=== PATIENT | male | born 1990 | race Caucasian/White ===

== ENCOUNTER → 2021-09-09 19:02 | Outpatient (CLI) | payer OTHER, SELFPAY | PROVIDERS: Visit Provider Nurse Practitioner | DX: Z20.822 Contact with and (suspected) exposure to COVID-19 (principal) | CPT/HCPCS: C9803; U0003; U0005 ==

== ENCOUNTER → 2021-10-14 15:07 | Outpatient (CLI) | payer OTHER, SELFPAY | PROVIDERS: Visit Provider Nurse Practitioner | DX: Z20.822 Contact with and (suspected) exposure to COVID-19 (principal) | CPT/HCPCS: C9803; U0003; U0005 ==

== ENCOUNTER 2022-03-15 10:50 | Emergency (ER) | payer SELFPAY ==
[2022-03-15 10:55] VITALS: BP 133/90; PULSE 60; RESP 18; TEMP 36.6; O2SAT 97; BMI 26.6
[2022-03-15 11:10] VITALS: BP 133/90; PULSE 60; RESP 18; TEMP 36.6; O2SAT 97
--- NOTE | 2022-03-15 11:17 | HMH.EDUTC ---
[facility] Disposition Clinical Impression: Upper respiratory infection, viral, Exposure to COVID-19 virus Disposition: Home, Self-Care Condition on Discharge: Good Instructions: DI for Viral Upper Respiratory Infection -- Adult, DI for COVID-19 (Suspected or Confirmed ) Additional Instructions: covid swab was sent to lab, call tomorrow for results. self isolate until test results are known to be negative No sign of a bacterial infection. Likely viral. Viruses can take 7-14 days to run their course. Nasal saline and bulb syringe or nose Marli to remove nasal drainage to help with nasal congestion. Hard to eat, drink, sleep with nasal congestion so important to keep this cleaned out. Monitor temp. Tylenol or Motrin as needed for pain or fever Encourage fluids, water, Gatorade, Powerade, Pedialyte if /toddler/child Warm salt water gargles Warm fluids Sore throat lozenges Sleep elevated Humidifier/vaporizer Follow-up immediately for new or worsening symptoms or no noticeable improvement over the next 48-72 hours. Referrals: Provider,Referral, [Primary Care Provider] - Time of Disposition: 11:20 Medical Decision Making - Harley Inquiry Pt receiving controlled substance: No Vital Signs: 03/15/22 10:55 03/15/22 11:10 Temperature 97.9 F 97.9 F Temperature Source Oral Pulse Rate 60 Pulse Rate [Right Brachial] 60 Respiratory Rate 18 18 Blood Pressure 133/90 Blood Pressure [Right Arm] 133/90 Blood Pressure Mean [Right Arm] 104 Blood Pressure Source [Right Arm] Automatic Cuff Blood Pressure Position [Right Arm] Sitting 02 Sat by Pulse Oximetry 97 Oxygen Delivery Method Room Air Orders (Tests/Meds): ORDERS Category Date Time Status Covid-19 Nasal PCR ([facility]) Routine Lab 03/15/22 10:57 Received [facility] HPI - General Chief complaint: Urgent [facility] Stated complaint: covid exposure, body cahes, sore throat, chills Time Seen by Provider: 03/15/22 11:18 Mode of Arrival: Ambulatory Source of Information: Patient Limitations: No Limitations Description of Symptoms (Recalled from Triage Doc. by RN): PATIENT C/O BODY ACHES, COUGH, AND FEVER. RECENTLY EXPOSED TO COVID HEENT Symptoms (Recalled from RN notes): No Resp Symptoms (Recalled from RN notes): Yes Skin Symptoms (Recalled from RN notes): No MS Symptoms (Recalled from RN notes): No Functional Status (Recalled from RN notes): WNL - History of Present Illness Provider Complaint: 31 yr old male presents for covid exposer and having sore throat,nasal congestion,cough,body aches,fever and chills - Related Data Home Medications Medication Instructions Recorded Confirmed No Known Home Medications 01/09/18 03/15/22 Allergies Allergy/AdvReac Type Severity Reaction Status Date / Time No Known Allergies Allergy Verified 03/15/22 11:08 - Worker's Comp Is this a Worker's Comp case?: No [facility] History - Hepatitis A Screen Attestation statement:: This patient has been screened for Hepatitis A risk factors. I have reviewed the patient's past medical history: Yes Medical History: Denies:: Cancer, Diabetes Mellitus Type 1, Diabetes Mellitus Type 2, MRSA Amputation: No Fractures: No - Social History Smoking Status: Current every day smoker Tobacco Type: cigarettes # Packs/Day (cigarettes): 1 Alcohol Intake: never ROS Obtained: Yes Systems reviewed as appropriate & no additional complaints - Constitutional Constitutional: Reports system reviewed and no additional complaints, except as docu, Reports body ache, Reports chills, Reports fever(s) - Eyes Eyes: Reports system reviewed and no additional complaints, except as docu, Denies eye discharge - ENT Ears, Nose, Mouth, and Throat: Reports system reviewed and no additional complaints, except as docu, Reports nasal congestion, Reports nasal discharge, Reports sore throat - Cardiovascular Cardiovascular: Reports system reviewed and no additional complaints, except
== END 2022-03-15 11:26 | disposition home or self-care (01) ==
PROVIDERS: Emergency Provider Nurse Practitioner Family
DX: J06.9 Acute upper respiratory infection, unspecified (principal); U07.1 COVID-19
CPT/HCPCS: 99212; C9803; G0463; U0003; U0005

== ENCOUNTER 2022-03-28 15:20 | Emergency (ER) | payer SELFPAY ==
[2022-03-28 15:28] VITALS: BP 118/80; PULSE 60; RESP 18; TEMP 36.9; O2SAT 95; BMI 25.8
--- NOTE | 2022-03-28 15:46 | PC.NURSE ---
at the bedside to suture
--- NOTE | 2022-03-28 15:53 | HMH.EDGENADL ---
ED Disposition Clinical Impression: Finger laceration Qualifiers: Encounter type: initial encounter Finger: index finger Damage to nail status: without damage Foreign body presence: without foreign body Laterality: left Qualified Code(s): S61.211A - Laceration without foreign body of left index finger without damage to nail, initial encounter Disposition: Home, Self-Care Condition on Discharge: Good Instructions: DI for Laceration Repair Additional Instructions: You have been evaluated for laceration to the left index finger. Please keep dressing on. Use splint for comfort. Keep wound dry for 24 hours. Okay to shower after that. Use triple antibiotic ointment. Follow-up with a primary care doctor for wound check in 7 to 10 days. Have any remaining sutures removed that time. Sutures are absorbable. Tylenol Motrin for pain. Return to the emergency department at once for any new or worsening symptoms, wound drainage, redness, fevers, other concerns. Referrals: Provider,Referral, [Primary Care Provider] - Time of Disposition: 15:59 - Critical Care Critical Care Time: No Attestation: On 03/28/22, the high probability of a clinically significant, sudden or life threatening deterioration of the following system(s) required my full and direct attention, intervention and personal management. The time I documented below is in addition to time spent performing reported procedures but includes the following listed in this critical care notation. Medical Decision Making - Medical Records Medical records reviewed: Yes: I reviewed the patient's medical records. - Harley Inquiry Pt receiving controlled substance: No Vital Signs: 03/28/22 15:28 Temperature 98.5 F Temperature Source Oral Pulse Rate [Left Radial] 60 Respiratory Rate 18 Blood Pressure [Right Arm] 118/80 Blood Pressure Mean [Right Arm] 92 02 Sat by Pulse Oximetry 95 Oxygen Delivery Method Room Air Orders (Tests/Meds): ED MEDICATIONS Discontinued Medications Generic Name Dose Route Start Last Admin Trade Name Freq PRN Reason Stop Dose Admin Lidocaine HCl 5 ml 03/28/22 15:31 Lidocaine 1% 10ml Mdv SQ 03/28/22 15:32 ONCE ONE Tetanus/Reduced Diphtheria/Acell Pertussis 0.5 ml 03/28/22 15:32 Tet/Diphth/Pert-Adult 0.5ml Syringe IM 03/28/22 15:33 .ONCE ONE Medical Decision Narrative: In summary this is a 31-year-old [id number] male presenting to the emergency department with a laceration to the radial aspect of the left index finger. Patient clinically stable on arrival. Vital signs within normal limits. Bleeding controlled on arrival. Laceration is near the joint, but does not cross the joint line. Doubt involvement of the capsule. He has sensation intact on both sides of the distal digit. Good capillary refill. No evidence of arterial bleed. Digital block performed with 1% lidocaine. Tourniquet applied. Laceration repaired with sutures. Procedure well-tolerated. Patient counseled on wound care. Recommended PCP follow-up. Given return precautions. Stable for discharge. General Adult HPI - General Chief complaint: Wound/Laceration Stated complaint: AO03/28/23 L index finger Time Seen by Provider: 03/28/22 15:23 Mode of Arrival: Ambulatory Limitations: No Limitations Description of Symptoms (Recalled from ER Triage Doc. by RN): pt to ed c/o left index finger laceration. pt states he was cutting wood and sliced his finger. pt states he is not utd on a tetanus shot. - History of Present Illness HPI narrative: 31-year-old male presenting to the emergency department with a laceration to the left index finger. Incident happened just prior to arrival. He was using a machete when it slipped and cut the side of his left index finger. There is a rather large laceration. Bleeding controlled with pressure. He is able to move the finger at of the joints. Denies any numbness, weakness, tingling at the
[2022-03-28 16:29] VITALS: BP 128/74; PULSE 85; RESP 16; TEMP 36.7; O2SAT 97
== END 2022-03-28 16:31 | disposition home or self-care (01) ==
PROVIDERS: Emergency Provider Emergency Medicine
DX: S61.211A Laceration without foreign body of left index finger without damage to nail, initial encounter (principal); W26.0XXA Contact with knife, initial encounter; Y93.H2 Activity, gardening and landscaping
CPT/HCPCS: 12002; 90471; 99282

== ENCOUNTER 2022-07-05 09:43 | Emergency (ER) | payer BC, SELFPAY ==
[2022-07-05 11:30] VITALS: BP 119/67; PULSE 88; RESP 20; TEMP 37.7; O2SAT 97; BMI 25.1
[2022-07-05 11:49] LABS: UTC Strep Screen (Rapid) Positive (Negative)
[2022-07-05 11:50] LABS: UTC Influenza A Antigen Negative (Negative); UTC Influenza B Antigen Negative (Negative)
--- NOTE | 2022-07-05 11:55 | EXP.UTC ---
Discharge Plan Disposition Patient Disposition: Home, Self-Care Condition: Good Prescriptions Prescriptions: New azithromycin [azithromycin] 250 mg tablet 250 mg PO DIRECTED Qty: 6 0RF Rx Instructions: Take two (2) tablets on day #1, then one (1) tablet day #2 thru #5 Referrals Follow up/Referrals: Provider,Referral, MD [Primary Care Provider] - See instructions Activity Restrictions/Add. Instructions Additional Instructions/Restrictions: Start antibiotics today be sure to take it as ordered with the full length of time although you should start feeling better in 24-48 hours. Change toothbrush and toothpaste 24-48 hours after starting antibiotics Tylenol or Motrin as needed for fever or pain Encourage fluids, water, Gatorade, Powerade, try cold fluids, popsicles, ice cream will make it feel better You are contagious for 24 hours. Avoid kissing anyone, no eating or drinking after anyone. You are contagious. Follow-up the ER for new or worsening symptoms or no noticeable improvement over the next 24-48 hours. Follow-up with PCP this week. Clinical Impressions Clinical Impression: Strep sore throat Instructions Patient Instructions: DI for Strep Throat Discharge ED Provider: Melvin ([facility])[place] [facility] [place] HPI General Stated complaint: ear pain, body aches, sore throat, lung congestion Mode of Arrival: Ambulatory Source of Information: Patient Limitations: No Limitations Time Seen by Provider: 07/05/22 11:55 Description of Symptoms (Recalled from Triage Doc. by RN): PATIENT C/O SORE THROAT, EAR PAIN, AND BODY ACHES X 3-4 DAYS HEENT Symptoms (Recalled from RN notes): Yes Resp Symptoms (Recalled from RN notes): No Skin Symptoms (Recalled from RN notes): No MS Symptoms (Recalled from RN notes): No Functional Status (Recalled from RN notes): WNL History of Present Illness Provider Complaint: 32 yr old male presents for sore throat, chills,and body aches for 2 days Related Data Previous Rx's Medication Instructions Recorded azithromycin 250 mg tablet 250 mg PO DIRECTED #6 tabs 07/05/22 Allergies Allergy/AdvReac Type Severity Reaction Status Date / Time No Known Allergies Allergy Verified 03/15/22 11:08 Worker's Comp Is this a Worker's Comp case?: No PFSH PFSH Social History , [employer]) Smoking Status: Current every day smoker tobacco type: cigarettes packs per day: 1 alcohol intake: never current occupational status: other Travel in the last 8 weeks: None ROS Obtained: Yes All systems reviewed & no additional complaints except as documented Constitutional Constitutional: Reports system reviewed and no additional complaints, except as documented Eyes Eyes: Reports system reviewed and no additional complaints, except as documented ENT Ears, Nose, Mouth, and Throat: Reports system reviewed and no additional complaints, except as documented, Reports as per HPI and Reports sore throat Cardiovascular Cardiovascular: Reports system reviewed and no additional complaints, except as documented and Reports as per HPI Gastrointestinal Gastrointestingal: Reports system reviewed and no additional complaints, except as documented and as per HPI Musculoskeletal Musculoskeletal: Reports system reviewed and no additional complaints, except as documented and Reports as per HPI Integumentary/Breasts Skin/Breast: Reports system reviewed and no additional complaints, except as documented and Reports as per HPI Endocrine Endocrine: Reports system reviewed and no additional complaints, except as documented and Reports as per HPI Hematologic/Lymphatic Henatologic/Lymphatic: Reports system reviewed and no additional complaints, except as documented and Reports as per HPI Allergic/Immunologic Allergic/Immunologic: Reports system reviewed and no additional complaints, except as documented and Reports as per HPI Physical Exam General General appearance: alert
[2022-07-05 12:07] VITALS: BP 119/67; PULSE 88; RESP 20; TEMP 37.7; O2SAT 97
== END 2022-07-05 12:10 | disposition home or self-care (01) ==
PROVIDERS: Emergency Provider Nurse Practitioner Family
DX: J02.0 Streptococcal pharyngitis (principal)
CPT/HCPCS: 87804; 87880; 99212; G0463

== ENCOUNTER 2022-09-24 10:14 | Emergency (ER) | payer BC, SELFPAY ==
[2022-09-24 10:30] VITALS: BP 117/50; PULSE 65; RESP 20; TEMP 36.6; O2SAT 97; BMI 24.3
--- NOTE | 2022-09-24 10:38 | EXP.UTC ---
Discharge Plan Disposition Patient Disposition: Home, Self-Care Condition: Good Prescriptions Prescriptions: New permethrin 5 % cream 1 applic topical Q14D Qty: 60 0RF Rx Instructions: leave on x8-14h ;apply second treatment 14 days after first treatment if live mites remain triamcinolone acetonide 0.1 % cream 1 applic topical BID PRN (Reason: itching) Qty: 15 0RF Referrals Follow up/Referrals: Provider,Referral, MD [Primary Care Provider] - See instructions Activity Restrictions/Add. Instructions Additional Instructions/Restrictions: Don't put the topical steroids (triamcinolone) on your face or your groin. Use the medication as directed. Don't put the topical steroids (triamcinolone) on your face or your groin. Follow up with your regular doctor. GO TO THE ER FOR ANY WORSENING SYMPTOMS OR CONCERNS Clinical Impressions Clinical Impression: Scabies Stand Alone Forms Stand Alone Forms: Work/School Release Instructions Patient Instructions: Scabies, DI for Scabies, Triamcinolone Topical Discharge ED Provider: Heath Crawford [facility] General Stated complaint: body rash Time Seen by Provider: 09/24/22 10:37 History of Present Illness Provider Complaint: He states that he has had itching and rash for the past 1 week. He has had scabies before and that is what he says he has now. Related Data Previous Rx's Medication Instructions Recorded permethrin 5 % topical cream 1 applic topical Q14D 2 doses #60 09/24/22 grams triamcinolone acetonide 0.1 % 1 applic topical BID PRN itching 09/24/22 topical cream #15 grams Allergies Allergy/AdvReac Type Severity Reaction Status Date / Time No Known Allergies Allergy Verified 09/24/22 10:49 [facility] Disclaimer: The information contained in this section may have been updated after the patient was seen, as this information can be updated by other users. Social History Smoking Status: Current every day smoker tobacco type: cigarettes packs per day: 1 alcohol intake: never current occupational status: other Travel in the last 8 weeks: None ROS Obtained: Yes All systems reviewed & no additional complaints except as documented Constitutional Constitutional: Denies chills and Denies fever(s) Eyes Eyes: Reports as per HPI, Denies blind spots, Denies blurry vision, Denies change in vision, Denies decreased night vision, Denies diplopia, Denies eye discharge, Denies floaters, Reports irritation, Denies itchy eyes, Denies loss of peripheral vision, Denies loss of vision, Reports sensitivity to light, Denies eye pain and Reports photophobia ENT Ears, Nose, Mouth, and Throat: Denies dizziness, Denies otalgia and Denies sore throat Cardiovascular Cardiovascular: Denies chest pain Respiratory Respiratory: Denies shortness of breath, Denies chest congestion, Denies cough, Denies stridor and Denies wheezing Gastrointestinal Gastrointestingal: Denies nausea or vomiting Musculoskeletal Musculoskeletal: Reports system reviewed and no additional complaints, except as documented and Denies arthralgias Integumentary/Breasts Skin/Breast: Denies rash Neurologic Neurologic: Denies dizziness, Denies loss of vision and Denies paresthesias Allergic/Immunologic Allergic/Immunologic: Denies itchy eyes and Denies wheezing Physical Exam General General appearance: alert and in no apparent distress Head Head exam: atraumatic, normocephalic and normal inspection Eye Eye exam: Present PERRL, EOMI, conjunctival redness and conjunctival injection; Absent discharge, nystagmus, miosis, mydriasis, periorbital swelling or periorbital tenderness ENT ENT exam: Present normal exam, normal oropharynx, mucous membranes moist, TM's normal bilaterally and normal external ear exam Neck Neck exam: Present normal inspection, full ROM and trachea midline; Absent meningismus or lymphadenopathy Chest Chest inspect
[2022-09-24 11:05] VITALS: BP 117/50; PULSE 65; RESP 20; TEMP 36.6; O2SAT 97
== END 2022-09-24 11:05 | disposition home or self-care (01) ==
PROVIDERS: Emergency Provider Nurse Practitioner Family
DX: B86 Scabies (principal)
CPT/HCPCS: 99212; 99213; G0463

== ENCOUNTER 2022-12-07 10:32 | Emergency (ER) | payer BC, SELFPAY ==
[2022-12-07 11:40] VITALS: BP 106/72; PULSE 57; RESP 20; TEMP 36.7; O2SAT 97; BMI 27.1
--- NOTE | 2022-12-07 11:40 | EXP.UTC ---
Discharge Plan Disposition Patient Disposition: Home, Self-Care Condition: Good Prescriptions Prescriptions: New benzonatate [benzonatate] 100 mg capsule 100 mg PO TIDP PRN (Reason: Cough) Qty: 30 0RF methylprednisolone 4 mg Tablets,Dose Pack 4 mg PO DIRECTED Qty: 21 0RF amoxicillin-pot clavulanate 875-125 mg Tablet 1 tab PO Q12H Qty: 20 0RF Referrals Follow up/Referrals: Provider,Referral, MD [Primary Care Provider] - See instructions Activity Restrictions/Add. Instructions Additional Instructions/Restrictions: Drink plenty of fluids. Take tylenol or ibuprofen for pain or fever. Take the medications as directed. Follow up with your regular doctor. GO TO THE ER FOR ANY WORSENING SYMPTOMS Clinical Impressions Clinical Impression: Pharyngitis, Bronchitis Stand Alone Forms Stand Alone Forms: Work/School Release Instructions Patient Instructions: DI for Pharyngitis/Tonsillopharyngitis -- Adult Discharge ED Provider: Heath Crawford [facility] General Stated complaint: Sore throat,earaches, frequent urination Time Seen by Provider: 12/07/22 11:40 History of Present Illness Provider Complaint: He states that he has had a sore throat and malaise for the past 2 days Related Data Previous Rx's Medication Instructions Recorded amoxicillin 875 mg-potassium 1 tab PO Q12H #20 tabs 12/07/22 clavulanate 125 mg tablet benzonatate 100 mg capsule 100 mg PO TIDP PRN Cough #30 caps 12/07/22 methylprednisolone 4 mg tablets in 4 mg PO DIRECTED #21 tabs 12/07/22 a dose pack Allergies Allergy/AdvReac Type Severity Reaction Status Date / Time No Known Allergies Allergy Verified 12/07/22 11:50 [facility] Disclaimer: The information contained in this section may have been updated after the patient was seen, as this information can be updated by other users. Social History Smoking Status: Current every day smoker tobacco type: cigarettes packs per day: 1 alcohol intake: never current occupational status: other Travel in the last 8 weeks: None ROS Obtained: Yes All systems reviewed & no additional complaints except as documented Constitutional Constitutional: Reports chills and Reports fever(s) Eyes Eyes: Denies eye discharge ENT Ears, Nose, Mouth, and Throat: Reports as per HPI Cardiovascular Cardiovascular: Denies chest pain Respiratory Respiratory: Denies chest congestion and Reports cough Gastrointestinal Gastrointestingal: Reports nausea; Denies abdominal pain, constipation, cramping, diarrhea or vomiting Musculoskeletal Musculoskeletal: Denies arthralgias Integumentary/Breasts Skin/Breast: Denies rash Neurologic Neurologic: Denies paresthesias Physical Exam General General appearance: alert and in no apparent distress Head Head exam: atraumatic, normocephalic and normal inspection Eye Eye exam: Present normal appearance, PERRL and EOMI ENT ENT exam: Present mucous membranes moist and normal external ear exam Expanded ENT Exam TM/Canal exam: Bilateral TM: erythema and bulging Nose exam: Absent sinus tenderness Mouth exam: Present normal external inspection; Absent drooling Teeth exam: Present normal inspection Throat exam: Present tonsillar erythema, tonsillomegaly and tonsillar exudate Neck Neck exam: Present normal inspection, full ROM and trachea midline; Absent tenderness, meningismus or lymphadenopathy Chest Chest inspection: Present normal inspection and symmetric chest wall rise; Absent tenderness Respiratory Respiratory exam: Present normal lung sounds bilaterally; Absent respiratory distress, wheezes or stridor Cardiovascular Cardiovascular exam: Present regular rate and normal rhythm; Absent systolic murmur or diastolic murmur Abdominal Exam Abdominal exam: Present soft and normal bowel sounds; Absent distention, tenderness, guarding, rebound or rigidity Extremities Exam Extremities exam: Pr
[2022-12-07 11:50] LABS: UTC Strep Screen (Rapid) Negative (Negative)
[2022-12-07 12:26] VITALS: BP 106/72; PULSE 57; RESP 20; TEMP 36.7; O2SAT 97
== END 2022-12-07 12:25 | disposition home or self-care (01) ==
PROVIDERS: Emergency Provider Nurse Practitioner Family
DX: J20.9 Acute bronchitis, unspecified (principal); J02.9 Acute pharyngitis, unspecified; F17.210 Nicotine dependence, cigarettes, uncomplicated
CPT/HCPCS: 87880; 99212; 99214; G0463

== ENCOUNTER 2023-01-20 14:04 | Emergency (ER) | payer BC, SELFPAY ==
[2023-01-20 14:48] VITALS: BP 131/77; PULSE 61; RESP 18; TEMP 36.8; O2SAT 98; BMI 29.8
--- NOTE | 2023-01-20 15:22 | EXP.UTC ---
Discharge Plan Disposition Patient Disposition: Home, Self-Care Condition: Good Prescriptions Prescriptions: No Action benzonatate [benzonatate] 100 mg capsule 100 mg PO TIDP PRN (Reason: Cough) Qty: 30 0RF methylprednisolone 4 mg Tablets,Dose Pack 4 mg PO DIRECTED Qty: 21 0RF amoxicillin-pot clavulanate 875-125 mg Tablet 1 tab PO Q12H Qty: 20 0RF Referrals Follow up/Referrals: Provider,Referral, MD [Primary Care Provider] - See instructions Clinical Impressions Clinical Impression: Nausea vomiting and diarrhea Discharge ED Provider: Shelbi Aguirre [facility] HPI General Stated complaint: dizzy, nausea, diarrhea Mode of Arrival: Ambulatory Source of Information: Patient Limitations: No Limitations Time Seen by Provider: 01/20/23 16:10 Description of Symptoms (Recalled from Triage Doc. by RN): pt c/o nausea, diarrhea, dizziness and blurred vision since last night. HEENT Symptoms (Recalled from RN notes): Yes Resp Symptoms (Recalled from RN notes): No Skin Symptoms (Recalled from RN notes): No MS Symptoms (Recalled from RN notes): No Functional Status (Recalled from RN notes): wnl History of Present Illness Provider Complaint: Patient states that last night he was at work and started with N/V/D and he felt a little dizzy and vision was off States he thinks it was blurry for a moment or two his phone didnt look right but that subsided shortly but still continued to have N/V/D States that today he was still having vomiting and diarrhea and denies dizziness or blurry vision and wasnt able to work and needs a work note Related Data Previous Rx's Medication Instructions Recorded amoxicillin 875 mg-potassium 1 tab PO Q12H #20 tabs 12/07/22 clavulanate 125 mg tablet benzonatate 100 mg capsule 100 mg PO TIDP PRN Cough #30 caps 12/07/22 methylprednisolone 4 mg tablets in 4 mg PO DIRECTED #21 tabs 12/07/22 a dose pack Allergies Allergy/AdvReac Type Severity Reaction Status Date / Time No Known Allergies Allergy Verified 01/20/23 15:00 Worker's Comp Is this a Worker's Comp case?: No [facility] Disclaimer: The information contained in this section may have been updated after the patient was seen, as this information can be updated by other users. Social History Smoking Status: Current every day smoker tobacco type: cigarettes packs per day: 1 alcohol intake: never current occupational status: other Travel in the last 8 weeks: None ROS Obtained: Yes All systems reviewed & no additional complaints except as documented and Yes Systems reviewed as appropriate & no additional complaints except as documented Constitutional Constitutional: Reports system reviewed and no additional complaints, except as documented and Reports as per HPI Eyes Eyes: Reports system reviewed and no additional complaints, except as documented, Reports as per HPI and Reports other (blurry vision for a moment last nigh after vomiting but only last a moment ) ENT Ears, Nose, Mouth, and Throat: Reports system reviewed and no additional complaints, except as documented, Reports as per HPI and Reports dizziness Cardiovascular Cardiovascular: Reports system reviewed and no additional complaints, except as documented and Reports as per HPI Respiratory Respiratory: Reports system reviewed and no additional complaints, except as documented and Reports as per HPI Gastrointestinal Gastrointestingal: Reports system reviewed and no additional complaints, except as documented, as per HPI, diarrhea, nausea and vomiting Genitourinary Male Genitourinary: Reports system reviewed and no additional complaints, except as documented and Reports as per HPI Neurologic Neurologic: Reports dizziness Physical Exam General General appearance: alert and in no apparent distress Eye Eye exam: Present normal appearance, PERRL and EOMI ENT ENT exam: Present normal exam, normal oropharynx, mucous m
[2023-01-20 16:02] VITALS: BP 131/77; PULSE 61; RESP 18; TEMP 36.8
== END 2023-01-20 16:11 | disposition home or self-care (01) ==
PROVIDERS: Emergency Provider Nurse Practitioner
DX: R11.2 Nausea with vomiting, unspecified (principal); R19.7 Diarrhea, unspecified; F17.210 Nicotine dependence, cigarettes, uncomplicated
CPT/HCPCS: 99212; 99213; G0463

== ENCOUNTER 2024-04-29 14:35 | Emergency (ER) | payer SELFPAY ==
[2024-04-29 14:40] VITALS: BP 111/71; PULSE 66; RESP 20; TEMP 36.6; O2SAT 97; BMI 26.6
--- NOTE | 2024-04-29 14:49 | EXP.UTC ---
Discharge Plan Disposition Patient Disposition: Home, Self-Care Condition: Good Prescriptions Prescriptions: New sulfamethoxazole-trimethoprim [Bactrim DS] 800-160 mg Tablet 1 tab PO Q12H Qty: 20 0RF Referrals Follow up/Referrals: Provider,Referral, [Primary Care Provider] - See instructions Clinical Impressions Clinical Impression: Abscess of external ear Instructions Patient Instructions: DI for Skin Abscess Print Language Print Language: Serbian Discharge ED Provider: Zakiya Johnson [facility] [place] HPI General Stated complaint: spot on back of ear with pain Mode of Arrival: Ambulatory Source of Information: Patient Limitations: No Limitations Time Seen by Provider: 04/29/24 14:49 Description of Symptoms (Recalled from Triage Doc. by RN): PATIENT C/O PAINFUL KNOT BEHIND LEFT EAR X 1 WEEK HEENT Symptoms (Recalled from RN notes): Yes Resp Symptoms (Recalled from RN notes): No Skin Symptoms (Recalled from RN notes): No MS Symptoms (Recalled from RN notes): No Functional Status (Recalled from RN notes): WNL History of Present Illness Provider Complaint: Knot behind left ear for a few days. It is sore. Tried to drain it this am but only blood came out. Onset (ago): day(s) (3) Location: head Relieving factors: none Exacerbating factors: none Associated symptoms: denies other symptoms Treatments prior to arrival: none Related Data Previous Rx's ?Medication ?Instructions ?Recorded sulfamethoxazole 800 1 tab PO Q12H #20 tabs 04/29/24 mg-trimethoprim 160 mg tablet (Bactrim DS) Allergies Allergy/AdvReac Type Severity Reaction Status Date / Time No Known Allergies Allergy Verified 01/20/23 15:00 Worker's Comp Is this a Worker's Comp case?: No [facility] Disclaimer: The information contained in this section may have been updated after the patient was seen, as this information can be updated by other users. Medical History (Updated 04/29/24 @ 15:00 by СЕРГЕЙ Lopez) No significant past medical history Social History Smoking Status: Current every day smoker tobacco type: cigarettes packs per day: 1 alcohol intake: never current occupational status: other Travel in the last 8 weeks: None ROS Obtained: Yes All systems reviewed & no additional complaints except as documented Integumentary/Breasts Skin/Breast: Reports as per HPI and Reports furuncle Physical Exam General General appearance: alert and in no apparent distress Head Head exam: atraumatic, normocephalic and normal inspection Eye Eye exam: Present normal appearance, PERRL and EOMI ENT ENT exam: Present normal exam, normal oropharynx, mucous membranes moist, TM's normal bilaterally and normal external ear exam Expanded ENT Exam External ear exam: Present other (small abscess behind left ear) Chest Chest inspection: Present normal inspection and symmetric chest wall rise; Absent tenderness Respiratory Respiratory exam: Present normal lung sounds bilaterally; Absent respiratory distress Cardiovascular Cardiovascular exam: Present regular rate and normal rhythm; Absent JVD Extremities Exam Extremities exam: Present normal inspection, full ROM and normal capillary refill; Absent calf tenderness Neurological Exam Neurological exam: Present alert and oriented X3 Psychiatric Psychiatric exam: Present normal affect and normal mood Skin Skin exam: Present warm, dry, intact and normal color Lymphatic Lymphatic Findings: no adenopathy Medical Decision Making Harley Inquiry Pt receiving controlled substance: No Vital Signs: 04/29/24 14:40 Temperature 97.9 F Temperature Source Oral Pulse Rate [Left Brachial] 66 Respiratory Rate 20 Blood Pressure [Left Arm] 111/71 Blood Pressure Mean [Left Arm] 84 Blood Pressure Source [Left Arm] Automatic Cuff Blood Pressure Position [Left Arm] Sitting 02 Sat by Pulse Oximetry 97 Oxygen Delivery Method Room Air
[2024-04-29 15:02] VITALS: BP 111/71; PULSE 66; RESP 20; TEMP 36.6; O2SAT 97
== END 2024-04-29 15:04 | disposition home or self-care (01) ==
PROVIDERS: Emergency Provider Physician Assistant
DX: H60.00 Abscess of external ear, unspecified ear (principal)
CPT/HCPCS: 99212; 99214; G0463

== ENCOUNTER 2024-08-19 12:36 | Emergency (ER) | payer SELFPAY ==
--- NOTE | 2024-08-19 13:31 | EXP.UTC ---
Discharge Plan Disposition Patient Disposition: Home, Self-Care Condition: Good Prescriptions Prescriptions: New azithromycin [Zithromax] 250 mg tablet 250 mg PO UD DOSE PK Qty: 6 0RF Rx Instructions: Take two (2) tablets today, then one (1) tablet days #2 thru #5 methylprednisolone 4 mg Tablets,Dose Pack 4 mg PO DIRECTED 6 Days Qty: 21 0RF Rx Instructions: Take 1 pack as directed for 6 days krhjretizoerobm-[id number] [Bromfed DM] 2-30-10 mg/5 mL Syrup 5 ml PO Q6H PRN (Reason: Cough) Qty: 240 0RF Referrals Follow up/Referrals: Provider,Referral, MD [Primary Care Provider] - See instructions Activity Restrictions/Add. Instructions Additional Instructions/Restrictions: Drink plenty of fluids. Take tylenol or ibuprofen for pain or fever. Take the medications as directed. Follow up with your regular doctor. GO TO THE ER FOR ANY WORSENING SYMPTOMS Clinical Impressions Clinical Impression: Sinusitis Instructions Patient Instructions: Sinusitis, DI for Sinusitis Print Language Print Language: Latvian Discharge ED Provider: Heath Crawford [facility] General Stated complaint: cough, congestion Time Seen by Provider: 08/19/24 13:31 Related Data Previous Rx's ?Medication ?Instructions ?Recorded azithromycin 250 mg tablet 250 mg PO UD DOSE PK #6 tabs 08/19/24 (Zithromax) nukpvambyakjexo-qlyqsutyrfxokrs-RC 5 ml PO Q6H PRN Cough #240 mL 08/19/24 2 mg-30 mg-10 mg/5 mL oral syrup (Bromfed DM) methylprednisolone 4 mg tablets in 4 mg PO DIRECTED 6 days #21 tabs 08/19/24 a dose pack Allergies Allergy/AdvReac Type Severity Reaction Status Date / Time No Known Allergies Allergy Verified 01/20/23 15:00 [facility] Disclaimer: The information contained in this section may have been updated after the patient was seen, as this information can be updated by other users. Medical History (Updated 08/19/24 @ 14:21 by Heath Crawford APRN) No significant past medical history Social History Smoking Status: Current every day smoker tobacco type: cigarettes packs per day: 1 alcohol intake: never current occupational status: other Travel in the last 8 weeks: None Have you lived/traveled outside [place] in past 30 days?: No Contact w/someone who lives/traveled outside [place] past 30 days?: No Exposure to someone with infectious disease in past 14 days?: No Do you have a fever (greater than 100.4 F or 38 C)?: No Have you tested positive for COVID-19: No Exposed to someone with COVID-19 in past 14 days?: No Do you have a sore throat?: No Do you have a cough?: Yes Do you have any weakness?: No Do you have any diarrhea?: No Are you experiencing any unusual bleeding?: No Do you have any muscle aches/pain?: No Do you have any abdominal pain?: No Are you experiencing loss of taste or smell?: No ROS Obtained: Yes All systems reviewed & no additional complaints except as documented Constitutional Constitutional: Reports poor appetite Eyes Eyes: Reports system reviewed and no additional complaints, except as documented ENT Ears, Nose, Mouth, and Throat: Reports as per HPI Cardiovascular Cardiovascular: Reports system reviewed and no additional complaints, except as documented and Denies chest pain Respiratory Respiratory: Denies shortness of breath, Denies chest congestion, Reports cough, Denies stridor and Denies wheezing Gastrointestinal Gastrointestingal: Reports system reviewed and no additional complaints, except as documented; Denies abdominal pain, diarrhea or vomiting Musculoskeletal Musculoskeletal: Reports system reviewed and no additional complaints, except as documented and Denies arthralgias Integumentary/Breasts Skin/Breast: Reports system reviewed and no additional complaints, except as documented and Denies rash Neurologic Neurologic: Denies paresthesias Allergic/Immunologic Allergic/Immunologic: Denies wheezing Physical Exam General General appearance: alert and in no apparent distress Eye Eye exam: Present normal appearance, PERRL and EOMI ENT ENT exam: Present mucous membranes moist and normal external ear exam Expanded ENT Exam External ear exam: Present normal external inspection TM/Canal exam: Bilateral TM: erythema and bulging Nose exam: Absent sinus tenderness Nasal speculum exam: Bilateral: normal Mouth exam: Present normal external inspection; Absent drooling Teeth exam: Present normal inspection Throat exam: Present tonsillar erythema and tonsillomegaly Neck Neck exam: Present normal inspection, full ROM and trachea midline; Absent tenderness, lymphadenopathy or thyromegaly Chest Chest inspection: Present normal inspection and symmetric chest wall rise; Absent tenderness or rash Respiratory Respiratory exam: Present normal lung sounds bilaterally; Absent respiratory distress, wheezes, stridor or accessory muscle use Cardiovascular Cardiovascular exam: Present regular rate, normal rhythm and normal heart sounds Abdominal Exam Abdominal exam: Present soft; Absent distention, tenderness, guarding, rebound or rigidity Extremities Exam Extremities exam: Present normal inspection, full ROM and normal capillary refill; Absent tenderness or calf tenderness Back Exam Back exam: Present normal inspection and full ROM; Absent tenderness Neurological Exam Neurological exam: Present alert and oriented X3 Psychiatric Psychiatric exam: Present normal affect and normal mood Skin Skin exam: Present warm, dry, intact and normal color Lymphatic Lymphatic Findings: no adenopathy Medical Decision Making Medical Records Medical records reviewed: No I reviewed the patient's medical records. Screening: Per USPSTF and CDC recommendations, given the prevalence of disease in our region, it is our hospital?s policy to screen for HIV and viral Hepatitis for all patients aged 18 and over and those with ongoing risk factors. Harley Inquiry Pt receiving controlled substance: No Lab Data Lab results reviewed: Yes I reviewed the patient's lab results.
[2024-08-19 13:34] VITALS: BP 148/81; PULSE 62; RESP 18; TEMP 36.8; O2SAT 96; BMI 27.3
[2024-08-19 14:24] VITALS: BP 148/81; PULSE 62; RESP 18; TEMP 36.8
== END 2024-08-19 14:24 | disposition home or self-care (01) ==
PROVIDERS: Emergency Provider Nurse Practitioner Family
DX: J32.9 Chronic sinusitis, unspecified (principal); R05.9 Cough, unspecified; R09.81 Nasal congestion; R63.8 Other symptoms and signs concerning food and fluid intake
CPT/HCPCS: 99212; G0381